=== PATIENT | male | born 1960 | race Caucasian/White ===

== ENCOUNTER 2018-04-02 05:47 | Day surgery (SDC) | payer OTHER ==
[~2018-04-02 05:47] MED LIST: AMLODIPINE BES2.5 MG PO
[2018-04-02] MEDS ORDERED: PERCOCET 5-3251 EACH PO (10:49)
[2018-04-02] MEDS ORDERED: RECTICARE30 GM TOP (10:49)
== END 2018-04-02 19:15 | disposition home or self-care (01) ==
LOC: CIR.AMB 05:47
DX: K64.8 Other hemorrhoids (principal); K64.4 Residual hemorrhoidal skin tags